=== PATIENT | female | born 1990 | race Two or more races ===

== ENCOUNTER 2019-10-27 09:53 | Day surgery (SDC) | payer OTHER ==
[2019-10-27] MEDS ORDERED: Glycopyrrolate 0.2 MG/ML 2 ML SDV IV ONE (09:54)
[2019-10-27] MEDS ORDERED: Lidocaine 2% 20 ML MDV ONE ×2 (09:54→10:44)
[2019-10-27] MEDS ORDERED: Propofol 200 MG/20 ML SDV IV ONE (09:54)
[2019-10-27] MEDS ORDERED: fentaNYL 100 MCG/2 ML SDV IV ONE (09:54)
[2019-10-27] MEDS ORDERED: Ondansetron 4 MG/2 ML SDV IV ONE (09:54)
[2019-10-27] MEDS ORDERED: Dexamethasone 4 MG/ML SDV IV ONE (09:54)
[2019-10-27] MEDS ORDERED: Ketorolac 30 MG/ML SDV IVPUSH ONE (09:54)
[2019-10-27] MEDS ORDERED: Midazolam 1 MG/ML 2 ML SDV IV ONE (09:54)
[2019-10-27] MEDS ORDERED: Lactated Ringers 1,000 ML IV SCH (10:45)
[2019-10-27] MEDS ORDERED: Ferric Subsulfate Topical Soln 8 GM (8 ML) Bottle ONE (10:46)
--- NOTE | 2019-10-27 16:56 | PCM.PRNOTE ---
- Free Text/Narrative Note: Date of Service: 10/27/2019 PREOPERATIVE AND POSTOPERATIVE DIAGNOSES: 1.Persistent FAVIOLA 1, LSIL on pap smear and coloposcopy 2.Dysmenorrhea with failure of OCP 3. Intolerance of pelvic exams 4. Generalized anxiety PROCEDURE PERFORMED:LEEP procedure using the colposcope; Mirena insertion PERSON PERFORMING:Veronica Downs M.D. (Dr. Jacek Lennon assisting) ANESTHESIA/ANALGESIA:Propofol sedation with LMI in place EBL:40-45 mL FINDINGS:Urine hCG negative prior to procedure. Prior to procedure, time out, site verification was obtained. Did discuss with patient the risks, benefits, alternatives and complications of procedure. She understood and agreed and wished to proceed. Verbal and written consent obtained. Questions were answered. Did discuss potential risks including, but not limited to, infection, bleeding, damage to inadvertent structures, finding pre-cancer/cancerous cells and potential need for further evaluation and treatment despite this procedure as well as risk of cervical stenosis, cervical incompetence, & potential for recurrent miscarriages. She understands and agrees and wishes to proceed. Mirena pre insertion checklist has been completed, no contraindications to IUD use are found. Pre-insertion urine test is negative. IUD use risks are reviewed with the patient. Insertion and removal risks including infection and perforation are discussed with the patient. Consent form is signed by the patient and care provider. Patient education materials and wallet id cards are given to the patient. IUD device is due for removal by 10/27/2024. DESCRIPTION OF PROCEDURE IN DETAIL: After proper consent was obtained, the patient taken to the operating room and placed under anestheisa. She was then was put in dorsal lithotomy position. Insulated sterile speculum was then inserted with significant difficulty. Dr. Lennon, [employer] was called to assist. He was able to place the speculum but had to assist holding it in place during the remainder of the procedure. Cervix was visualized and colposcope used. Subsequently this was cleansed with Betadine and Lugol's solution was applied. Transformation zone was seen in its entirety.. Subsequently, LEEP was then performed using an 20 x 8 loop. ECC was then obtained. These samples submitted to pathology, labeled #1--cervix and #2--ECC. Ball cautery tip was then applied and wound edges were cauterized with hemostasis reassured. Tenaculum was then applied to the cervix. Uterus sounded to {9 cm. IUD loaded per manufacturers instructions and inserted into the uterus to a depth of 9 cm without difficulty. Strings were cut to a length of 2 cm. Tenaculum removed. Cervix re-examined and hemostasis confirmed. Insulated speculum removed. Patient taken to PACU in stable condition The patient tolerated the procedure well. No immediate complications were noted. Post-care instructions were discussed as well as reasons to return or go to the emergency room. She will be notified of pathology results when they return. She will follow-up in 10 days for LEEP follow-up Veronica Downs MD
== END 2019-10-27 15:54 | disposition home or self-care (01) ==
LOC: DL.SDS 09:53 → EDSTATUS 12:15 → DL.SDS 15:54
PROVIDERS: ATTEND Family Medicine
DX: N87.0 Mild cervical dysplasia (principal); Z30.430 Encounter for insertion of intrauterine contraceptive device; I10 Essential (primary) hypertension; F41.1 Generalized anxiety disorder; J45.909 Unspecified asthma, uncomplicated; E66.9 Obesity, unspecified; Z68.41 Body mass index [BMI] 40.0-44.9, adult; Z79.899 Other long term (current) drug therapy
CPT/HCPCS: 57460; 58300; 81025; J1100; J1885; J2001; J2250; J2405; J2704; J3010; J3490; J7120

== ENCOUNTER 2020-01-07 14:55 | Emergency (ER) | payer OTHER | END 2020-01-07 18:30 | disposition left against medical advice (07) | LOC: DL.ED 14:55 | DX: Z53.21 Procedure and treatment not carried out due to patient leaving prior to being seen by health care provider (principal) | CPT/HCPCS: 87081; 87430; 87804 ==